=== PATIENT | female | born 1980 | race Caucasian/White ===

== ENCOUNTER 2019-02-27 07:57 | Emergency (ER) | payer BC, OTHER ==
[~2019-02-27] VITALS: Ht 162.6 cm; Wt 80.0 kg
[~2019-02-27 07:57] MED LIST: AUG875 PO; IBUP-1542 PO; OMEP20CA16 PO
[2019-02-27 07:58] VITALS: Ht 162.6 cm; Wt 80.0 kg
[2019-02-27] MEDS ORDERED: CEPH-443 PO (10:10)
[2019-02-27 10:20] VITALS: BP 115/58; PULSE 84; RESP 18
--- NOTE | 2019-02-27 14:08 | ERD ---
ER Documentation Chief Complaint Chief Complaint intermittent vaginal bleed ing x 8 weeks 16 weeks HPI 38-year-old female presents with vaginal bleeding x8 weeks. Patient is approximately 16 weeks . She [facility]. LNMP November 02. She is not passing clots. She is G6, . States that she has had intermittent bleeding over the last 8 weeks. Denies any pelvic pain. Denies medical problems. NKDA. Surgical history denies. Social history cholecystectomy. ROS All systems reviewed and are negative except as per history of present illness. Medications Home Meds Active Scripts Cephalexin* (Keflex*) 500 Mg Capsule, 500 MG PO QID for 7 Days, CAP Prov:BRIANNA THAPA PA-C 02/27/19 Ibuprofen* (Motrin*) 600 Mg Tab, 600 MG PO Q6, #20 TAB Prov:RINKU CHAMPAGNE PA-C 11/07/15 Amoxicillin-Clavulanate K* (Augmentin*) 875 Mg Tab, 875 MG PO BID for 7 Days, TAB Prov:RINKU CHAMPAGNE PA-C 11/07/15 Reported Medications Omeprazole* (Omeprazole*) 20 Mg Capsule.dr, 20 MG PO DAILY, CAP 07/01/14 Allergies Allergies: Coded Allergies: No Known Drug Allergies (Verified Allergy, Mild, 07/01/14) PMhx/Soc History of Surgery: No Anesthesia Reaction: No Hx Neurological Disorder: No Hx Respiratory Disorders: No Hx Cardiac Disorders: No Hx Psychiatric Problems: No Hx Miscellaneous Medical Probl: No Hx Alcohol Use: No Hx Substance Use: No Hx Tobacco Use: No Smoking Status: Never smoker FmHx Family History: No diabetes, No coronary disease, No other Physical Exam Vitals Vital Signs Date Temp Pulse Resp B/P (MAP) Pulse Ox O2 O2 Flow FiO2 Time Delivery Rate 02/27/19 84 18 115/58 99 10:20 (77) 02/27/19 98.2 89 16 118/56 100 07:58 (76) Physical Exam GENERAL: The patient is well-appearing, well-nourished, in no acute distress HEENT: Atraumatic. Conjunctivae are pink. Pupils equal, round, and reactive to light. There is no scleral icterus. Tympanic membranes clear bilaterally. Pedro pharynx clear. NECK: C-spine is soft and supple. There is no meningismus. There is no cervical lymphadenopathy. CHEST: Clear to auscultation bilaterally. There are no rales, wheezes or rhonchi. HEART: Regular rate and rhythm. No murmurs, clicks, rubs or gallops. No S3 or S4. ABDOMEN:Soft, nontender and nondistended. Good bowel sounds. No rebound or guarding. No gross peritonitis. No gross organomegaly or masses. Result Diagram: 02/27/19 0845 Results 24 hrs Laboratory Tests Test 02/27/19 08:37 02/27/19 08:45 Urine Color YELLOW Urine Clarity SLIGHTLY CLOUDY Urine pH 5.0 Urine Specific [place] 1.020 Urine Ketones NEGATIVE mg/dL Urine Nitrite NEGATIVE mg/dL Urine Bilirubin NEGATIVE mg/dL Urine Urobilinogen 1+ mg/dL Urine Leukocyte Esterase 2+ Kobi/ul Urine Microscopic RBC 6 /HPF Urine Microscopic WBC 0 /HPF Urine Squamous Epithelial Cells FEW /HPF Urine Calcium Oxalate Crystals FEW /HPF Urine Mucus FEW /HPF Urine Hemoglobin 2+ mg/dL Urine Glucose NEGATIVE mg/dL Urine Total Protein NEGATIVE mg/dl White Blood Count 11.8 10^3/ul Red Blood Count 4.13 10^6/ul Hemoglobin 12.1 g/dl Hematocrit 36.5 % Mean Corpuscular Volume 88.4 fl Mean Corpuscular Hemoglobin 29.3 pg Mean Corpuscular Hemoglobin Concent 33.2 g/dl Red Cell Distribution Width 13.4 % Platelet Count 231 10^3/UL Mean Platelet Volume 11.7 fl Immature Granulocytes % 0.400 % Neutrophils % 74.5 % Lymphocytes % 19.5 % Monocytes % 4.4 % Eosinophils % 0.8 % Basophils % 0.4 % Nucleated Red Blood Cells % 0.0 /100WBC Immature Granulocytes # 0.050 10^3/ul Neutrophils # 8.8 10^3/ul Lymphocytes # 2.3 10^3/ul Monocytes # 0.5 10^3/ul Eosinophils # 0.1 10^3/ul Basophils # 0.1 10^3/ul Nucleated Red Blood Cells # 0.0 10^3/ul Beta HCG, Quantitative 66094.0 mIU/ml Procedures/MDM DIAGNOSTIC IMAGING REPORT Patient: SABRINA LAUREN : 1980 Age: 38 Sex: F MR #: [id number] DOS: 02/27/19 0816 Ordering MD: DORENE THAPA PA-C Location: [facility] Room/Bed: PROCEDURE: US OB AND ULTRASOUND CERVIX. CLINICAL INDICATION: Size and dates , vaginal bleeding TECHNIQUE: Multiple sonographic images of the pelvis and gravid uterus were obtained. The images were reviewed on a PACS workstation. Transvaginal images of the cervix were also obtained. COMPARISON: No prior studies are available for comparison. FINDINGS: Cervix: Length: 4.1 cm. Closed and competent. Gestation: Single live intrauterine gestation. Cardiac activity: 142 beats per minute. Presentation: Vertex. Placenta: Location: Anterior. Appearance: 2.9 cm thin hypoechoic area at the edge of the placenta, suspicious for a small area of abruption. Venous lakes are also noted. Measurements: BPD = 3.5 cm, 16 weeks and 6 days HC = 13 cm, 16 weeks and 4 days AC = 11.3 cm, 17 weeks and 1 day FL = 2.0 cm, 15 weeks and 6 days Gestational Age: AUA estimated gestational age: 16 weeks 4 days LMP estimated gestational age: 16 weeks 5 days AUA estimated date of delivery: 08/10/19 The EFW = 160 g, 31.5%ile based on LMP age. RPTAT: AA IMPRESSION: Single live intrauterine gestation of approximately 16 weeks and 4 days based on ultrasound measurements. Anterior placenta with a possible small focal area of abruption. No evidence of placenta previa. Follow-up is recommended. MDM: 38-year-old female presenting with vaginal bleeding. Patient cervical length appears to be appropriate and there does not appear to be any concern for early labor. Patient has findings consistent with urinary tract infection will will be discharged with antibiotics. Hemoglobin is stable. Patient is Rh+ and does not require RhoGam. Patient is discharged with strict ER precautions and told to follow-up with primary care within 1 to 2 days for close evaluation. Patient is told if symptoms change or worsen to return immediately to the ER. All questions answered at discharge Departure Diagnosis: Primary Impression: UTI (urinary tract infection) Additional Impression: Vaginal bleeding Condition: Stable Patient Instructions: Understanding Urinary Tract Infections (UTIs) Referrals: [facility]OLOGIST [place] [address] [facility] [address] [place] [id number] OFFICE FAX CHANTE MENJIVAR [address] [place] [address] [address] JANG [place] [address] [place] [address] DR ZUNIGA, [facility] [address], [place] [address] [address] SINGH, [facility] [address] [place] [address] [facility] [address] [place] [address] [facility] [address] [address] [facility] [address] [facility] [address] [place] [address] [address] PIERSON, JENNY [address] [facility], [place] [address] DR GAMEZ [facility] [address] [place], [place] [id number] Additional Instructions: FOLLOW UP WITH YOUR PRIMARY CARE PHYSICIAN TOMORROW.Return to this facility if you are not improving as expected. BRIANNA THAPA PA-C February 27, 2019 14:08
== END 2019-02-27 10:20 | disposition home or self-care (01) ==
LOC: FTE 07:57
DX: O23.42 Unspecified infection of urinary tract in pregnancy, second trimester (principal); Z3A.16 16 weeks gestation of pregnancy
CPT/HCPCS: 36415; 76805; 76817; 81001; 84702; 85025; 86900; 86901

== ENCOUNTER 2019-03-26 12:19 | Outpatient (CLI) | payer OTHER ==
[~2019-03-26] VITALS: Ht 165.1 cm; Wt 82.2 kg
[~2019-03-26 12:19] MED LIST changes: +CEPH-443 PO
[2019-03-26 12:43] VITALS: Ht 165.1 cm; Wt 82.2 kg
[2019-03-26] MEDS ORDERED: PREN1TAB71 PO (12:48)
--- NOTE | 2019-03-26 14:09 | PN ---
Triage Information Date/Time Reason for visit: Uterine contractions Weeks of Gestation 20+ /Para n/a Diabetes: none Hypertention: none Objective Vital Signs Date Temp Pulse Resp B/P (MAP) Pulse Ox O2 O2 Flow FiO2 Time Delivery Rate 03/26/19 98.0 12:43 Heart Rate: 150's Contractions: None Results/Medications Result Diagram: 03/26/19 1245 Results 24 hrs Laboratory Tests Test 03/26/19 12:45 White Blood Count 12.9 H Red Blood Count 4.09 L Hemoglobin 11.9 L Hematocrit 36.4 L Mean Corpuscular Volume 89.0 Mean Corpuscular Hemoglobin 29.1 Mean Corpuscular Hemoglobin Concent 32.7 Red Cell Distribution Width 14.3 Platelet Count 224 Mean Platelet Volume 12.7 H Immature Granulocytes % 0.700 H Neutrophils % 72.7 Lymphocytes % 20.2 Monocytes % 5.4 Eosinophils % 0.7 Basophils % 0.3 Nucleated Red Blood Cells % 0.0 Immature Granulocytes # 0.090 H Neutrophils # 9.4 H Lymphocytes # 2.6 Monocytes # 0.7 Eosinophils # 0.1 Basophils # 0.0 Nucleated Red Blood Cells # 0.0 Disposition: Discharge Assessment/Plan Ultrasound reviewed Rh+ Small abruption No VB at this time --->Discharged with precautions --->Questions answered --->precautions discussed MARION VILLELA M.D. March 26, 2019 14:09
== END 2019-03-26 14:19 | disposition home or self-care (01) ==
LOC: OBT 12:19 → L-D 12:19 → OBT 14:19
PROVIDERS: ATTEND Obstetrics & Gynecology
DX: O62.9 Abnormality of forces of labor, unspecified (principal); Z3A.20 20 weeks gestation of pregnancy
CPT/HCPCS: 76815; 76817; 85025; G0463

== ENCOUNTER 2019-04-03 14:50 | Outpatient (CLI) | payer OTHER ==
[~2019-04-03] VITALS: Ht 162.6 cm; Wt 82.9 kg
[~2019-04-03 14:50] MED LIST changes: -AUG875 PO; -CEPH-443 PO; -IBUP-1542 PO; -OMEP20CA16 PO; +PREN1TAB71 PO
[2019-04-03 15:07] VITALS: Ht 162.6 cm; Wt 82.9 kg
--- NOTE | 2019-04-03 23:32 | PN ---
Triage Information Date/Time Reason for visit: Vag spotting / bleeding Weeks of Gestation 21 weeks and 5 days /Para -0-0-5 Diabetes: none Hypertention: none Objective Heart Rate: 140's Contractions: None Results/Medications Imaging Results here is a single intrauterine gestation in a vertex position. The heart rate is noted at 141 bpm. The placenta is anterior. No evidence of previa or abruption in the current study. MVP = 7.3 cm. RPTAT: AA IMPRESSION: Anterior placenta with no evidence of previa or abruption in the current study. Disposition: Discharge Assessment/Plan 38 years old -0-0-5 with single intrauterine at 21 weeks and 5 days with a MASHA of 08/09/2019 complaining of vaginal bleeding. She has on and off vaginal bleeding in the last few days. She had an ultrasound with which revealed minimal bleeding behind placenta. Today's ultrasound with no evidence of placenta previa or abruption. She denies nausea, vomiting, shortness of breath, chest pain, headache, visual changes or LOF. -FHR: No sign of metabolic acidosis- Category I -Contractions: None -Ultrasound performed as noted above -Symptoms and sign of labor, preeclampsia, kick count discussed with patient, she voiced understanding. All of her questions answered. -Patient was discharged home in stable condition with the appropriate discharge instructions provided. I would like patient to have close follow-up with her primary physician or outpatient clinic in 1-2 days or return to triage for worsening symptoms or any other urgent concerns. JAVON OSULLIVAN Apr 03, 2019 23:32
== END 2019-04-03 17:18 | disposition home or self-care (01) ==
LOC: OBT 14:50 → L-D 14:52 → OBT 17:18
PROVIDERS: ATTEND Obstetrics & Gynecology
DX: O26.852 Spotting complicating pregnancy, second trimester (principal); O09.522 Supervision of elderly multigravida, second trimester; Z3A.21 21 weeks gestation of pregnancy
CPT/HCPCS: 76815; G0463

== ENCOUNTER 2019-05-08 14:11 | Outpatient (CLI) | payer OTHER ==
--- NOTE | 2019-05-08 23:58 | PN ---
Triage Information Date/Time Reason for visit: Vag spotting / bleeding Weeks of Gestation 26 weeks and 5 days /Para -0-0-5 Diabetes: none Hypertention: none Objective Heart Rate: 140's Contractions: None Results/Medications Result Diagram: 05/08/19 1459 05/08/19 1459 Results 24 hrs Laboratory Tests Test 05/08/19 14:50 05/08/19 14:59 Urine Color YELLOW Urine Clarity SLIGHTLY CLOUDY A Urine pH 6.0 Urine Specific [place] 1.020 Urine Ketones TRACE A Urine Nitrite NEGATIVE Urine Bilirubin NEGATIVE Urine Urobilinogen NEGATIVE Urine Leukocyte Esterase 3+ H Urine Microscopic RBC 1 Urine Microscopic WBC 7 H Urine Squamous Epithelial Cells MODERATE Urine Mucus FEW A Urine Hemoglobin NEGATIVE Urine Glucose NEGATIVE Urine Total Protein NEGATIVE White Blood Count 14.6 H Red Blood Count 3.85 L Hemoglobin 11.4 L Hematocrit 33.5 L Mean Corpuscular Volume 87.0 Mean Corpuscular Hemoglobin 29.6 Mean Corpuscular Hemoglobin Concent 34.0 Red Cell Distribution Width 14.4 Platelet Count 220 Mean Platelet Volume 11.7 H Immature Granulocytes % 1.100 H Neutrophils % 74.2 Lymphocytes % 18.1 Monocytes % 5.2 Eosinophils % 0.9 Basophils % 0.5 Nucleated Red Blood Cells % 0.0 Immature Granulocytes # 0.160 H Neutrophils # 10.8 H Lymphocytes # 2.6 Monocytes # 0.8 Eosinophils # 0.1 Basophils # 0.1 Nucleated Red Blood Cells # 0.0 Prothrombin Time 12.6 Prothrombin Time Ratio 1.0 INR International Normalized Ratio 0.93 Activated Partial Thromboplast Time 30.3 Fibrinogen 371.0 Sodium Level 138 Potassium Level 3.6 Chloride Level 109 Carbon Dioxide Level 20 L Anion Gap 9 Blood Urea Nitrogen 6 L Creatinine 0.39 L Est Glomerular Filtrat Rate mL/min > 60 Glucose Level 117 Calcium Level 8.8 Total Bilirubin 0.4 Direct Bilirubin 0.00 Indirect Bilirubin 0.4 Aspartate Amino Transf (AST/SGOT) 17 Alanine Aminotransferase (ALT/SGPT) 19 Alkaline Phosphatase 107 Total Protein 6.8 Albumin 3.4 Globulin 3.40 H Albumin/Globulin Ratio 1.00 Imaging Results The cervix measures 4.6 cm in length. There is a single live intrauterine gestation. Cardiac activity is present with 141 beats per minute. There is a breech presentation. The placenta is anterior. There is no evidence of placental abruption. MVP = 7.6 cm. Biophysical profile: movement 2/2 tone 2/2. breathing 2/2 MASTER 2/2 Total 06/06 RPTAT: AA . IMPRESSION: Normal biophysical profile. Cervix measures 4.6 cm in length. Disposition: Discharge Assessment/Plan 39 years old -0-0-5 with single intrauterine at 26 weeks and 5 days complaining of vaginal spotting when she wiped herself. She was seen in clinic today there was RBC in urinalysis. She was sent to triage for further evaluation. She has history of multiple episode of vaginal spotting/bleeding in current . Initially she had retroplacental hemorrhage which resolved in follow-up ultrasound. She states good movement. She denies nausea, vomiting, shortness of breath, chest pain, headache, visual changes or LOF. -FHR: No sign of metabolic acidosis- Category I -Contractions: None -Ultrasound performed as noted above -No vaginal bleeding in exam was noted -CBC, CMP, coag test and urinalysis as noted above -Symptoms and sign of labor, preeclampsia, kick count discussed with patient, she voiced understanding. All of her questions answered. -Patient was discharged home in stable condition with the appropriate discharge instructions provided. I would like patient to have close follow-up with her primary physician or outpatient clinic in 1-2 days or return to triage for worsening symptoms or any other urgent concerns. JAVON OSULLIVAN May 08, 2019 23:58
== END 2019-05-08 17:35 | disposition home or self-care (01) ==
LOC: OBT 14:11 → L-D 14:12 → OBT 17:35
PROVIDERS: ATTEND Obstetrics & Gynecology
DX: O46.8X2 Other antepartum hemorrhage, second trimester (principal); O09.522 Supervision of elderly multigravida, second trimester; Z3A.26 26 weeks gestation of pregnancy
CPT/HCPCS: 76817; 76818; 80053; 81001; 85025; 85384; 85610; 85730; 87086; G0463

== ENCOUNTER 2019-07-15 09:58 | Outpatient (CLI) | payer OTHER ==
[~2019-07-15] VITALS: Ht 162.6 cm; Wt 86.2 kg
[2019-07-15 10:31] VITALS: Ht 162.6 cm; Wt 86.2 kg
[2019-07-15 10:32] VITALS: BP 111/60; PULSE 96; RESP 19
[2019-07-15] MEDS ORDERED: ONDANSETRON 4 MG TAB PO ONE (12:00)
== END 2019-07-15 13:28 | disposition home or self-care (01) ==
LOC: OBT 09:58 → L-D 09:58 → OBT 13:28
PROVIDERS: ATTEND Obstetrics & Gynecology
DX: O99.613 Diseases of the digestive system complicating pregnancy, third trimester (principal); R19.7 Diarrhea, unspecified; R50.9 Fever, unspecified; O09.523 Supervision of elderly multigravida, third trimester; Z3A.36 36 weeks gestation of pregnancy
CPT/HCPCS: 80053; 80307; 81001; 85025; 87045; G0463

== ENCOUNTER 2019-07-17 11:42 | Inpatient (IN) | payer OTHER ==
[~2019-07-17] VITALS: Ht 162.6 cm; Wt 87.7 kg
[2019-07-17] MEDS ORDERED: LACTATED RINGER'S 1,000 ML IV PRN (12:20)
[2019-07-17] MEDS ORDERED: IBUPROFEN 600 MG TAB PO PRN (12:30)
[2019-07-17] MEDS ORDERED: METHYLERGONOVINE 0.2 MG INJ IM PRN (12:30)
[2019-07-17] MEDS ORDERED: LIDOCAINE 1% (MPF) 30 ML INJ INJ PRN (12:30)
[2019-07-17] MEDS ORDERED: MISOPROSTOL 200 MCG TAB PR PRN (12:30)
[2019-07-17] MEDS ORDERED: CARBOPROST 250 MCG INJ IM PRN (12:30)
[2019-07-17] MEDS ORDERED: AMPICILLIN 2 GM/NS (PMX) 100 ML IV ONE (12:30)
[2019-07-17] MEDS ORDERED: OXYTOCIN 30 UNITS/LR 500 ML IV PRN (12:30)
[2019-07-17] MEDS ORDERED: OXYTOCIN 30 UNITS/LR 500 ML IV SCH ×2 (12:30)
[2019-07-17 12:33] VITALS: BP 119/76; PULSE 104; RESP 20; Ht 162.6 cm; Wt 87.7 kg
[2019-07-17] MEDS: LACTATED RINGER'S 1,000 ML IV SCH ×2 (12:48→13:52)
[2019-07-17] MEDS: BETAMET NA PHOS/AC (6 MG/ML) 2 ML INJ SYG IM SCH (14:48)
[2019-07-17] MEDS: AMPICILLIN 1 GM/NS (PMX) 50 ML IV SCH ×2 (17:36→22:39)
[2019-07-18] MEDS: AMPICILLIN 1 GM/NS (PMX) 50 ML IV SCH ×4 (03:03→15:04)
[2019-07-18] MEDS: LACTATED RINGER'S 1,000 ML IV SCH ×2 (06:34→15:23)
[2019-07-18] MEDS: BETAMET NA PHOS/AC (6 MG/ML) 2 ML INJ SYG IM SCH (15:09)
[2019-07-19] MEDS ORDERED: PRENATAL VITAMIN PO SCH (09:00)
== END 2019-07-18 16:30 | disposition home or self-care (01) | DRG 833 ==
LOC: L-D 11:42 → EDSTATUS 08-17 11:41
PROVIDERS: ADMIT Obstetrics & Gynecology; ATTEND Obstetrics & Gynecology
DX: O47.03 False labor before 37 completed weeks of gestation, third trimester (principal); O99.820 Streptococcus B carrier state complicating pregnancy; O09.523 Supervision of elderly multigravida, third trimester; Z3A.36 36 weeks gestation of pregnancy
CPT/HCPCS: 76815; 76818; 81001; 85025; 85610; 85730; 86592; 86850; 86900; 86901; 87340; J0290; J0702; J7120